=== PATIENT | female | born 1965 | race Caucasian/White ===

== ENCOUNTER 2018-05-27 12:00 | Observation (INO) ==
[2018-05-27 12:36] LABS: Basophils # 0.1 10*3/uL (0.0-0.2); Basophils % 0.6 % (0.0-0.8); Eosinophils # 0.1 10*3/uL (0.0-0.87); Hemoglobin 15.1 GM/DL (12.0-16.0); Immature Granulocytes % 0.1 %; Immature Granulocytes Absolute 0.01 #; Lymphocytes # 1.7 10*3/uL (1.4-4.0); Lymphocytes % 21.4 % (21.3-54.2); Mean Corpuscular HGB Conc 33.6 GM/DL (32-36); Mean Corpuscular Hemoglobin 29 PG (27-34); Mean Corpuscular Volume 85.1 FL (87-102); Mean Platelet Volume 10.3 FL (9.6-12.0); Monocytes # 0.4 10*3/uL (0.11-0.8); Monocytes % 5.4 % (1.7-12.7); Neutrophils # 5.6 10*3/uL (1.4-7.4); Neutrophils % 71.5 % (38.7-73.9); Platelet Count 382 T/CUMM (130-400); Red Blood Count 5.29 MC/CUMM (3.8-5.5); Red Cell Distribution Width 13.2 % (9.3-17.3); White Blood Count 7.9 T/CUMM (4-12)
[2018-05-27 13:01] LABS: Alanine Aminotransferase 17 U/L (13-56); Albumin 4.7 G/DL (3.4-5.0); Alkaline Phosphatase 84 U/L (45-117); Aspartate Amino Transferase 22 U/L (0-37); Blood Urea Nitrogen 11 MG/DL (7-18); Calcium 9.4 MG/DL (8.5-10.1); Glucose 122 MG/DL (74-106); Osmolality,Calculated 267.2 MOS/KG (273-304); Potassium 3.1 MMOL/L (3.5-5.1); Sodium 134 MMOL/L (136-145); Total Protein 8.2 G/DL (6.4-8.3); Troponin I < 0.015 NG/ML (0.00-0.045)
[2018-05-27] MEDS ORDERED: DILTIAZEM 50 MG/10 ML VIAL IV STA (13:08)
[2018-05-27] MEDS ORDERED: DILTIAZEM 25 MG/5 ML VIAL IV ONE (13:15)
[2018-05-27 13:57] LABS: Free T4 (Free Thyroxine) 1.05 NG/DL (0.76-1.46); Thyroid Stimulating Hormone 2.87 uIU/ml (0.358-3.74)
[2018-05-27] MEDS ORDERED: ONDANSETRON 4 MG/2 ML VIAL IV PRN (15:28)
[2018-05-27] MEDS ORDERED: ACETAMINOPHEN 325 MG TABLET PO PRN (15:28)
[2018-05-27] MEDS ORDERED: POTASSIUM CHLORIDE 20 MEQ/15 ML UDCUP PER TUBE PRN (15:51)
[2018-05-27] MEDS ORDERED: traMADol 50 MG TABLET PO PRN (16:09)
[2018-05-27] MEDS ORDERED: FUROSEMIDE 40 MG/4 ML VIAL IV ONE (16:13)
[2018-05-27] MEDS ORDERED: POTASSIUM CHLORIDE 20 MEQ/15 ML UDCUP PO ONE (16:58)
[2018-05-27] MEDS: IPRATROPIUM 500 MCG/2.5 ML NEB RESP TX SCH (19:19)
[2018-05-27] MEDS: LEVALBUTEROL 0.63 MG/3 ML NEB RESP TX SCH (19:19)
[2018-05-27 20:29] LABS: Apearance,Urine CLEAR (Clear); Bacteria,Urine Moderate /HPF (Few); Bilirubin,Urine Negative (Negative); Blood, Urine Negative (Negative); Glucose,Urine (UA) Negative (Negative); Ketones,Urine Negative (Negative); Mucus,Urine Occasional /LPF (Occasional); Nitrite,Urine Negative (Negative); Protein,Urine Negative; RBC,Urine 4 /HPF (0-4); Squamous Epithelial Cell,Urine Occasional /HPF (0-10); Urine Color Yellow (Yellow); Urine Specific Gravity 1.009 (1.001-1.035); Urine Urobilinogen < 2.0 EU/DL (0.2-1.0); WBC,Urine 2 /HPF (0-6)
[2018-05-27] MEDS ORDERED: MONTELUKAST 10 MG TABLET PO SCH (21:00)
[2018-05-27] MEDS ORDERED: ROSUVASTATIN 20 MG TABLET PO SCH (21:00)
[2018-05-27] MEDS ORDERED: ENOXAPARIN 40 MG/0.4 ML SYRINGE SUBCUT SCH (21:00)
[2018-05-27] MEDS ORDERED: amLODIPine 5 MG TABLET PO SCH (21:00)
[2018-05-27] MEDS ORDERED: CITALOPRAM 20 MG TABLET PO SCH (21:00)
[2018-05-27] MEDS: POTASSIUM CHLORIDE 20 MEQ TABLET PO SCH (21:31)
[2018-05-27] MEDS: DILTIAZEM 30 MG TABLET PO SCH (21:32)
[2018-05-27] MEDS: DOCUSATE SODIUM 100 MG CAPSULE PO SCH (21:32)
[2018-05-28] MEDS: LEVALBUTEROL 0.63 MG/3 ML NEB RESP TX SCH ×4 (00:46→18:54)
[2018-05-28] MEDS: IPRATROPIUM 500 MCG/2.5 ML NEB RESP TX SCH ×4 (00:46→18:54)
[2018-05-28 06:52] LABS: Calcium 8.6 MG/DL (8.5-10.1); Osmolality,Calculated 280.3 MOS/KG (273-304); Potassium 3.6 MMOL/L (3.5-5.1)
[2018-05-28] MEDS ORDERED: PANTOPRAZOLE 40 MG TABLET PO SCH (09:00)
[2018-05-28] MEDS ORDERED: ASPIRIN EC 81 MG TABLET PO SCH (09:00)
[2018-05-28] MEDS: DILTIAZEM 30 MG TABLET PO SCH ×2 (10:08→16:02)
[2018-05-28 11:26] LABS: Troponin I < 0.015 NG/ML (0.00-0.045)
[2018-05-28] MEDS ORDERED: diphenhydrAMINE CAP 25 MG CAPSULE PO ONE (12:08)
[2018-05-28] MEDS ORDERED: POTASSIUM CHLORIDE RIDER 10 MEQ in PREMIX 1 EACH IV PRN (12:08)
[2018-05-28] MEDS ORDERED: MAGNESIUM SULF RIDER 2 GM in PREMIX 1 EACH IV PRN (12:08)
[2018-05-28] MEDS ORDERED: DIAZEPAM 5 MG TABLET PO ONE (12:08)
[2018-05-28] MEDS ORDERED: HEPARIN/NACL 0.9% 2 UNITS/ML 1,000 ML IV ONE (12:15)
[2018-05-28] MEDS ORDERED: LIDOCAINE 1% 20 ML VIAL ONE (12:15)
[2018-05-28] MEDS ORDERED: HYDROmorphone 2 MG/1 ML VIAL ONE (12:22)
[2018-05-28] MEDS ORDERED: MIDAZOLAM 2 MG/2 ML VIAL ONE (12:22)
[2018-05-28] MEDS ORDERED: NITROGLYCERIN DRIP 50 MG/250 ML BOTTLE IV ONE (12:23)
[2018-05-28] MEDS ORDERED: VERAPAMIL 5 MG/2 ML VIAL ONE (12:23)
[2018-05-28] MEDS ORDERED: SODIUM CHLORIDE 0.9% 1,000 ML IV SCH ×2 (12:30→13:30)
[2018-05-28] MEDS ORDERED: ENOXAPARIN 30 MG/0.3 ML SYRINGE ONE (13:09)
[2018-05-28] MEDS ORDERED: ALUM/MAG/SIMETH/LIDO VISC 1:1 30 ML BOTTLE PO ONE (13:36)
[2018-05-28] MEDS: DOCUSATE SODIUM 100 MG CAPSULE PO SCH (13:59)
[2018-05-28] MEDS: POTASSIUM CHLORIDE 20 MEQ TABLET PO SCH (14:00)
[2018-05-28] MEDS ORDERED: POTASSIUM CHLORIDE 20 MEQ/15 ML UDCUP PO ONE (15:50)
[2018-05-28 19:09] VITALS: BP 105/61
== END 2018-05-28 19:19 | disposition home or self-care (01) ==
LOC: N.EDINP 12:00 → N.ED 12:00 → N.EDINP 15:20 → N.TELEN 15:29
PROVIDERS: ADMIT Internal Medicine; ATTEND Internal Medicine
PROC: CLCCHCL (ICD-10-PCS; 2018-05-28 13:15)